=== PATIENT | male | born 1975 | race Caucasian/White ===

== ENCOUNTER 2018-11-28 11:21 | Emergency (ER) | payer BC, OTHER ==
[~2018-11-28] VITALS: Ht 188 cm; Wt 149.7 kg
--- NOTE | 2018-11-28 11:21 | NUR ---
Patient BIBA BLS, transferred to bed 5. RN evaluating patient at bedside.
[2018-11-28 11:30] VITALS: BP 137/95
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
--- NOTE | 2018-11-28 12:15 | NUR ---
Dr. Youssef evaluating patient at bedside.
[2018-11-28] MEDS ORDERED: HYDROcodone/APAP 10/325 MG 1 TAB TAB PO ONE (12:20)
[2018-11-28] MEDS ORDERED: KETOROLAC 60 MG/2 ML VIAL IM ONE (12:20)
--- NOTE | 2018-11-28 13:40 | NUR ---
PT REPORTS RELIEF OF PAIN AT THIS TIME.
[2018-11-28 13:57] VITALS: BP 136/81
== END 2018-11-28 13:57 | disposition home or self-care (01) ==
LOC: MED 11:21
DX: S39.012A Strain of muscle, fascia and tendon of lower back, initial encounter (principal); G89.29 Other chronic pain; I10 Essential (primary) hypertension; F41.9 Anxiety disorder, unspecified; V49.40XA Driver injured in collision with unspecified motor vehicles in traffic accident, initial encounter; Y93.89 Activity, other specified; Y92.89 Other specified places as the place of occurrence of the external cause; Y99.8 Other external cause status
CPT/HCPCS: 72100; 96372; 99283; J1885